=== PATIENT | male | born 1970 | race Two or more races ===

== ENCOUNTER 2018-06-08 20:51 | Emergency (ER) | payer SELFPAY ==
[~2018-06-08] VITALS: Ht 167.6 cm; Wt 81.6 kg
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
[2018-06-08] MEDS ORDERED: IBUPROFEN600 MG ORAL (22:30)
[2018-06-08 22:50] VITALS: BP 133/82
--- NOTE | 2018-06-08 22:50 | NUR ---
ED Nurse Note: Pt cleared by MD. Discharge instructions and prescriptions provided. Pt verbalized understanding of all instructions. VSS. Showing no signs of cardiac or respiratory distress. ID band and IV removed. Pt accompanied by son. Ambulated out of ED with cane.
--- NOTE | 2018-06-09 10:31 | Diagnostic Imaging Report ---
Indication: Trauma, pain, status post fall Technique: 3 views of the right knee Comparison: None Findings: There is a small superior pole patellar traction osteophyte. No acute fractures. No dislocations. The joint spaces are preserved. There are vascular calcifications. No suprapatellar effusion Impression: No acute bony trauma Minimal degenerative changes
== END 2018-06-08 22:50 | disposition home or self-care (01) ==
LOC: EDBD 20:51 → EMR 21:09
DX: S80.01XA Contusion of right knee, initial encounter (principal); W19.XXXA Unspecified fall, initial encounter; Y92.811 Bus as the place of occurrence of the external cause
CPT/HCPCS: 29505; 99283